=== PATIENT | male | born 1960 | race Two or more races ===

== ENCOUNTER 2024-03-24 21:54 | Inpatient (IN) | payer MEDICARE, BC ==
[~2024-03-24] VITALS: Ht 170.2 cm; Wt 47.2 kg
[2024-03-24 21:40] VITALS: BP 91/55; TEMP 97.3; O2SAT 99
[2024-03-25] VITALS (7 sets, daily range): BP systolic 80–88; BP diastolic 58–70; TEMP 97.2–97.5; O2SAT 97–100
[2024-03-25] MEDS ORDERED: ONDANSETRON HCL/PF 4 MG/2 ML VIAL IVP PRN
[2024-03-25] MEDS ORDERED: Z GUARD REMEDY 4 OZ OINT TP PRN
[2024-03-25] MEDS ORDERED: MAG HYDROX/AL HYDROX/SIMETH 30 ML UDC PO PRN
[2024-03-25] MEDS: IV 1/2NS 1000 ML 1,000 ML IV PRN (03:22)
[2024-03-25] MEDS: PANTOPRAZOLE 40 MG TABLET.DR PO SCH (07:57)
[2024-03-25] MEDS: DOCUSATE SODIUM 100 MG CAPSULE PO SCH (09:38)
[2024-03-25] MEDS ORDERED: TIMO5DRO18 EACHEYE (10:30)
[2024-03-25] MEDS ORDERED: MENT113O TP (10:30)
[2024-03-25] MEDS ORDERED: LATA2.5D15 EACHEYE (10:30)
[2024-03-25] MEDS ORDERED: GABA300C PO (10:30)
[2024-03-25] MEDS ORDERED: TAMS-12 PO (10:30)
[2024-03-25] MEDS: IV NS 0.9% 1,000 ML IV SCH (11:39)
[2024-03-25] MEDS: THERAHONEY GEL 1.5 OZ TUBE TP SCH (11:39)
[2024-03-25 12:25] LABS: EOSINOPHILS % (AUTO) 0.1 % (0.0-6.0); HEMATOCRIT 29 % (39-51); HEMOGLOBIN 9.7 g/dL (13.5-17.5); LYMPHOCYTES # (AUTO) 7.6 K/uL (0.8-4.8); MEAN CORPUSCULAR HEMOGLOBIN 31 PG (26.0-33.0); MEAN CORPUSCULAR HGB CONC 34 g/dl (31.0-36.0); MEAN CORPUSCULAR VOLUME 90 fL (80-96); MONOCYTES # (AUTO) 0.3 K/uL (0.1-1.30); MONOCYTES % (AUTO) 2.4 % (2.0-12.0); NEUTROPHILS # (AUTO) 4.5 K/uL (1.8-8.9); NEUTROPHILS % (AUTO) 36.5 % (43.0-81.0); PLATELET COUNT (AUTO) 206 K/uL (150-450); RED BLOOD CELL COUNT(AUTO) 3.17 MIL/uL (4.5-6.0); RED CELL DISTRIBUTION WIDTH 20.4 % (11.5-15.0); WHITE BLOOD COUNT (AUTO) 12.4 K/uL (4.3-11.0)
[2024-03-25 12:28] LABS: INR 1.62 (0.91-1.10); PROTHROMBIN TIME 16.6 SECS (9.2-11.1)
[2024-03-25 12:31] LABS: BILIRUBIN,DIRECT 15.7 mg/dL (0.0-0.2); BILIRUBIN,TOTAL 19.1 mg/dL (0.2-1.0); CALCIUM, SERUM 7.6 mg/dL (8.5-10.1); CREATININE 1.5 mg/dL (0.6-1.3); MAGNESIUM 2.6 mg/dL (1.8-2.4); PHOSPHORUS 5.6 mg/dL (2.5-4.9); TOTAL PROTEIN, SERUM 5.7 g/dL (6.4-8.2)
[2024-03-25 12:35] LABS: POTASSIUM 4.9 mmol/L (3.5-5.1)
[2024-03-25 12:38] LABS: NT-PRO BNP 563 pg/mL (0-125)
[2024-03-25] MEDS: ARGININE/GLUTAMINE/CALCIUM BMB 1 EACH POWD.PACK PO SCH (12:38)
[2024-03-25] MEDS: ENSURE ENLIVE CHOC 237 ML CAN PO SCH (12:38)
[2024-03-25 13:42] LABS: ALBUMIN 1.3 g/dL (3.4-5.0)
[2024-03-26] VITALS: BP 87/70; TEMP 99; O2SAT 99
[2024-03-26 01:03] VITALS: BP 87/70; TEMP 97.5; O2SAT 99
[2024-03-26 04:27] VITALS: BP 86/68; TEMP 96.9; O2SAT 97
[2024-03-26 07:30] VITALS: BP 88/74; TEMP 97.3; O2SAT 100
[2024-03-26 08:00] VITALS: BP 141/101; TEMP 97.5; O2SAT 100
[2024-03-26] MEDS: MIDODRINE HCL (5MG) 5 MG TABLET PO SCH (09:30)
[2024-03-26] MEDS: MAGNESIUM HYDROXIDE 30 ML UDC PO PRN (11:23)
[2024-03-26 12:56] VITALS: BP 89/68
== END 2024-03-26 15:22 | disposition hospice, home (50) | DRG 640 ==
LOC: TELE 21:55
PROVIDERS: ADMIT Nurse Practitioner Family; ATTEND Nurse Practitioner Family
DX: E86.0 Dehydration (principal); L89.153 Pressure ulcer of sacral region, stage 3; D68.59 Other primary thrombophilia; C22.7 Other specified carcinomas of liver; N17.9 Acute kidney failure, unspecified; R18.8 Other ascites; R64 Cachexia; E44.0 Moderate protein-calorie malnutrition; E86.1 Hypovolemia; I95.1 Orthostatic hypotension; E87.1 Hypo-osmolality and hyponatremia; R62.7 Adult failure to thrive; Z66 Do not resuscitate; K72.10 Chronic hepatic failure without coma; M89.8X9 Other specified disorders of bone, unspecified site; I65.22 Occlusion and stenosis of left carotid artery; D64.9 Anemia, unspecified; K74.60 Unspecified cirrhosis of liver; Z92.21 Personal history of antineoplastic chemotherapy; G62.9 Polyneuropathy, unspecified; E88.09 Other disorders of plasma-protein metabolism, not elsewhere classified
CPT/HCPCS: 36415; 76700-TC; 80048-TC; 80076-TC; 83735-TC; 83880; 84100-TC; 84484-TC; 85025-TC; 85610-TC; 87081-TC; 93307-TC; 93880-TC; A4223; G0378; J3490; J7030